=== PATIENT | female | born 1960 | race African-American/Black ===

== ENCOUNTER 2017-10-20 09:51 | Emergency (ER) | payer BC | END 2017-10-20 11:38 | disposition home or self-care (01) | LOC: ER 09:51 | DX: S80.01XA Contusion of right knee, initial encounter (principal); Z88.0 Allergy status to penicillin; W22.8XXA Striking against or struck by other objects, initial encounter; Y93.89 Activity, other specified; Y92.89 Other specified places as the place of occurrence of the external cause; Y99.8 Other external cause status | CPT/HCPCS: 73564; 99284 ==

== ENCOUNTER 2018-09-22 13:20 | Emergency (ER) | payer SELFPAY ==
[~2018-09-22] VITALS: Ht 160 cm; Wt 98.0 kg
[~2018-09-22 13:20] MED LIST: DICL50TA4 PO; MECL25TA3 PO; METH4TAB2 PO; ONDA4TAB7 PO
--- NOTE | 2018-09-22 13:57 | PHYS DOC ---
Past Medical History Past Medical History: No Pertinent History Past Surgical History: Tubal ligation, Other Additional Past Surgical Histo: laparoscopy Additional Information: Denies smoking Alcohol Use: Rarely Drug Use: None Adult General Chief Complaint Chief Complaint: ABDOMINAL PAIN HPI HPI Patient is a 58 year old female who presents with complaining of abdominal pain. Patient complaining of upper abdominal pain for the last 5 days as a constant burning pain with episodes of sharp pain with radiation to bilateral lower abdomen and rated her pain 7/10. Patient states she usually has 3 small bowel movement every day and for the last few days had only 2 bowel movements per day and took laxative without change of her pain. Patient also took Advil and Pepto-Bismol without improvement of her pain. Patient denies nausea, vomiting, fever and chills, diarrhea, urinary symptom, history of the same pain. Patient has history of tubal ligation and denies any other medical problem. Review of Systems Review of Systems Constitutional: Denies fever or chills [] Eyes: Denies change in visual acuity, redness, or eye pain [] HENT: Denies nasal congestion or sore throat [] Respiratory: Denies cough or shortness of breath [] Cardiovascular: No additional information not addressed in HPI [] GI: Reports abdominal pain, constipation, denies nausea, vomiting, bloody stools or diarrhea [] : Denies dysuria or hematuria [] Musculoskeletal: Denies back pain or joint pain [] Integument: Denies rash or skin lesions [] Neurologic: Denies headache, focal weakness or sensory changes [] Endocrine: Denies polyuria or polydipsia [] All other systems were reviewed and found to be within normal limits, except as documented in this note. Current Medications Current Medications Current Medications Medications (Trade) Dose Ordered Sig/Aidee Start Time Stop Time Status Last Admin Dose Admin Info (CONTRAST GIVEN -- Rx MONITORING) 1 each PRN DAILY PRN 09/22/18 14:30 09/24/18 14:29 Iohexol (Omnipaque 240 Mg/ml) 30 ml 1X ONCE 09/22/18 14:15 09/22/18 14:17 DC 09/22/18 14:15 30 ML Iohexol (Omnipaque 300 Mg/ml) 75 ml 1X ONCE 09/22/18 14:15 09/22/18 14:17 DC 09/22/18 15:00 75 ML Ketorolac Tromethamine (Toradol 30mg Vial) 30 mg 1X ONCE 09/22/18 14:00 09/22/18 14:01 DC 09/22/18 14:31 30 MG Allergies Allergies Allergies Coded Allergies Type Severity Reaction Last Updated Verified Penicillins Allergy Intermediate 08/25/16 Yes Physical Exam Physical Exam Constitutional: Well developed, well nourished, no acute distress, non-toxic appearance. [] HENT: Normocephalic, atraumatic, oropharynx moist, no oral exudates, nose normal. [] Eyes: PERRLA, EOMI, conjunctiva normal, no discharge. [] Neck: Normal range of motion, no tenderness, supple, no stridor. [] Cardiovascular:Heart rate regular rhythm, no murmur [] Lungs & Thorax: Bilateral breath sounds clear to auscultation [] Abdomen: Bowel sounds normal, soft, guarding in epigastric area and right lower quadrant, no tenderness, no masses, no pulsatile masses. [] Skin: Warm, dry, no erythema, no rash. [] Back: No tenderness, no CVA tenderness. [] Extremities: No tenderness, no cyanosis, no clubbing, ROM intact, no edema. [] Neurologic: Alert and oriented X 3, normal motor function, normal sensory function, no focal deficits noted. [] Psychologic: Affect normal, judgement normal, mood normal. [] Current Patient Data Vital Signs Vital Signs Date Time Temp Pulse Resp B/P (MAP) Pulse Ox O2 Delivery O2 Flow Rate FiO2 09/22/18 15:00 59 20 146/70 (95) 100 Room Air 09/22/18 13:25 97.7 97.7 Lab Values Laboratory Tests Test 09/22/18 13:57 09/22/18 14:10 White Blood Count 7.1 x10^3/uL (4.0-11.0) Red Blood Count 4.81 x10^6/uL (3.50-5.40) Hemoglobin 13.4 g/dL (12.0-15.5) Hematocrit 40.3 % (36.0-47.0) Mean Corpuscular Volume 84 fL (79-100) Mean Corpuscular Hemoglobin 28 pg (25-35) Mean Corpuscular Hemoglobin Concent 33 g/dL (31-37) Red Cell Distribution Width 14.1 % (11.5-14.5) Platelet Count 215 x10^3/uL (140-400) Neutrophils (%) (Auto) 49 % (31-73) Lymphocytes (%) (Auto) 42 % (24-48) Monocytes (%) (Auto) 6 % (0-9) Eosinophils (%) (Auto) 1 % (0-3) Basophils (%) (Auto) 1 % (0-3) Neutrophils # (Auto) 3.5 x10^3uL (1.8-7.7) Lymphocytes # (Auto) 3.0 x10^3/uL (1.0-4.8) Monocytes # (Auto) 0.4 x10^3/uL (0.0-1.1) Eosinophils # (Auto) 0.1 x10^3/uL (0.0-0.7) Basophils # (Auto) 0.1 x10^3/uL (0.0-0.2) Sodium Level 141 mmol/L (136-145) Potassium Level 3.9 mmol/L (3.5-5.1) Chloride Level 104 mmol/L (98-107) Carbon Dioxide Level 29 mmol/L (21-32) Anion Gap 8 (6-14) Blood Urea Nitrogen 14 mg/dL (7-20) Creatinine 0.7 mg/dL (0.6-1.0) Estimated GFR (Cockcroft-Gault) 104.4 BUN/Creatinine Ratio 20 (6-20) Glucose Level 92 mg/dL (70-99) Calcium Level 9.4 mg/dL (8.5-10.1) Total Bilirubin 0.2 mg/dL (0.2-1.0) Aspartate Amino Transferase (AST) 21 U/L (15-37) Alanine Aminotransferase (ALT) 20 U/L (14-59) Alkaline Phosphatase 80 U/L (46-116) Total Protein 7.2 g/dL (6.4-8.2) Albumin 3.5 g/dL (3.4-5.0) Albumin/Globulin Ratio 0.9 (1.0-1.7) L Lipase 173 U/L (73-393) Urine Collection Type Unknown Urine Color Colorless Urine Clarity Cloudy Urine pH 7.0 Urine Specific [place] 1.010 Urine Protein Negative mg/dL (NEG-TRACE) Urine Glucose (UA) Negative mg/dL (NEG) Urine Ketones (Stick) Negative mg/dL (NEG) Urine Blood Negative (NEG) Urine Nitrite Negative (NEG) Urine Bilirubin Negative (NEG) Urine Urobilinogen Dipstick 0.2 mg/dL (0.2 mg/dL) Urine Leukocyte Esterase Negative (NEG) Urine RBC Rare /HPF (0-2) Urine WBC Occ /HPF (0-4) Urine Squamous Epithelial Cells Few /LPF Urine Bacteria Few /HPF (0-FEW) Laboratory Tests 09/22/18 13:57 Laboratory Tests 09/22/18 13:57 EKG EKG [] Radiology/Procedures Radiology/Procedures IMAGING REPORT Signed PATIENT: CRISTIANA SOSA ACCOUNT: [id number] : 1960 LOCATION: ER AGE: 58 SEX: F EXAM STATUS: REG ER ORD. PHYSICIAN: ROSA MCNULTY MD REASON: periumbilical and upper abdominal pain PROCEDURE: CT ABD PELV W/ORAL&IV CONTRAST PQRS Compliance Statement: One or more of the following individualized dose reduction techniques were utilized for this examination: 1. Automated exposure control 2. Adjustment of the mA and/or kV according to patient size 3. Use of iterative reconstruction technique CT abdomen/pelvis with contrast 09/22/2018 2:55 PM INDICATION: Periumbilical abdominal pain and upper abdominal pain. COMPARISON: None available TECHNIQUE: Multiple axial CT images of the abdomen and pelvis were obtained after the intravenous administration of 75 mL Omnipaque 300. Coronal and sagittal reformats are provided. FINDINGS: There is subsegmental atelectasis at the right lung base. Heart size is within normal limits. The liver, spleen, bilateral adrenal glands, pancreas and gallbladder are normal in appearance. The abdominal aorta is normal in course and caliber. Few scattered mesenteric lymph nodes are identified measuring up to 15 x 9 mm (series 2, image 33). Additional mesenteric lymph node measures 12 x 9 mm (series 2, image 35). No mesenteric inflammatory changes are identified. There is mild diverticulosis. No adjacent inflammatory changes are identified. Small and large bowel are normal in caliber. Oral contrast was administered. Opacified bowel loops since her normal mucosal fold pattern. There is eccentric wall thickening involving the cecum. Normal appendix is visualized. There is no abdominal free fluid. There is no free intraperitoneal air. The kidneys enhance symmetrically. There is no suspicious renal mass. There is no hydronephrosis. There are no suspected calculi within the kidneys, ureters or urinary bladder. Urinary bladder is within normal limits given degree of distention. Uterus is anteverted with endometrial thickening measuring up to 13 mm. Correlation with ultrasound pelvis may be of benefit as findings appear thickened for a postmenopausal female. No suspicious pelvic mass is identified. No suspicious osseous amount is identified. IMPRESSION: 1. No evidence for bowel obstruction or inflammation. Appendix is normal in appearance. Next line 2. There is eccentric wall thickening involving the cecum. Correlation with endoscopic evaluation is recommended to assess for malignant etiology. 3. Borderline mesenteric lymph nodes are identified, nonspecific. Findings may be reactive. However, a 3 month follow-up CT may be of benefit. 4. Endometrial thickening measuring up to 13 mm. Findings would be abnormal in a postmenopausal female. If there is persistent clinical concern, further evaluation with pelvic ultrasound may be of benefit. Correlate with any exogenous hormone use . Electronically signed by: Ying Turner MD (09/22/2018 3:15 PM) [facility] DICTATED and SIGNED BY: YING TURNER MD DATE: 09/22/18 1510 Course & Med Decision Making Course & Med Decision Making Pertinent Labs and Imaging studies reviewed. (See chart for details) Evaluation of patient in ER showed 58-year-old female patient with complaining of upper abdominal pain for several days with the other symptoms. Patient had unremarkable physical exam and labs. CT showed thickening wall of cecum. Patient never had colonoscopy. Patient instructed to follow up with GI on-call for possible colonoscopy. Patient felt better with treatment in ER and plan to discharge her home with prescription of Ultram. Dragon Disclaimer Dragon Disclaimer This electronic medical record was generated, in whole or in part, using a voice recognition dictation system. Departure Departure Impression: Primary Impression: Abdominal pain Additional Impression: Abnormal computed tomography of cecum and terminal ileum Disposition: HOME, SELF-CARE (@1600 ) Condition: IMPROVED Referrals: MARIA INES MCALLISTER MD (PCP) SHEA CORCORAN MD Patient Instructions: Abdominal Pain Additional Instructions: Drink plenty of liquids Follow-up with your primary care physician in 3-5 days Return to ER if not getting better Follow-up with on-call GI physician regarding abnormal CT Scripts Tramadol Hcl (ULTRAM) 50 Mg Tablet 50 MG PO Q6HRS PRN for PAIN, #14 TAB 0 Refills Prov: ROSA MCNULTY MD 09/22/18 Problem Qualifiers ROSA MCNULTY MD Sep 22, 2018 13:57
[2018-09-22] MEDS ORDERED: KETOROLAC 30 MG/ML VIAL. IV ONE (14:00)
[2018-09-22 14:12] LABS: BASO # 0.1 x10^3/uL (0.0-0.2); BASO % 1 % (0-3); EOS # 0.1 x10^3/uL (0.0-0.7); EOS % 1 % (0-3); HEMATOCRIT 40.3 % (36.0-47.0); HEMOGLOBIN 13.4 g/dL (12.0-15.5); LYMPH % 42 % (24-48); MEAN CORPUSCULAR HEMOGLOBIN 28 pg (25-35); MEAN CORPUSCULAR HGB CONC 33 g/dL (31-37); MEAN CORPUSCULAR VOLUME 84 fL (79-100); MONO # 0.4 x10^3/uL (0.0-1.1); MONO % 6 % (0-9); NEUT # 3.5 x10^3uL (1.8-7.7); NEUT % 49 % (31-73); PLATELET COUNT 215 x10^3/uL (140-400); RED BLOOD COUNT 4.81 x10^6/uL (3.50-5.40); RED CELL DISTRIBUTION WIDTH 14.1 % (11.5-14.5); WHITE BLOOD COUNT 7.1 x10^3/uL (4.0-11.0)
[2018-09-22] MEDS ORDERED: IOHEXOL 240 MG/ML 50ML VIAL. PO ONE (14:15)
[2018-09-22] MEDS ORDERED: IOHEXOL 300 MG/ML 100ML VIAL. IV ONE (14:15)
[2018-09-22 14:18] LABS: BILIRUBIN,URINE NEGATIVE (NEG); CLARITY,URINE CLOUDY; NITRITE,URINE NEGATIVE (NEG); PROTEIN,URINE NEGATIVE (NEG-TRACE); UROBILINOGEN,URINE 0.2 mg/dL (0.2 mg/dL)
[2018-09-22 14:22] LABS: CALCIUM 9.4 mg/dL (8.5-10.1); CREATININE 0.7 mg/dL (0.6-1.0); GFR 104.4; POTASSIUM 3.9 mmol/L (3.5-5.1)
[2018-09-22 14:27] LABS: ALBUMIN 3.5 g/dL (3.4-5.0); ALBUMIN/GLOBULIN RATIO 0.9 (1.0-1.7); TOTAL BILIRUBIN 0.2 mg/dL (0.2-1.0); TOTAL PROTEIN 7.2 g/dL (6.4-8.2)
[2018-09-22] MEDS ORDERED: CONTRAST GIVEN. MC PRN (14:30)
[2018-09-22 14:31] LABS: BACTERIA,URINE FEW /HPF (0-FEW); COLOR,URINE COLORLESS; RBC,URINE RARE /HPF (0-2); SQUAMOUS EPITHELIAL CELL,UR FEW /LPF; WBC,URINE OCC /HPF (0-4)
[2018-09-22 15:00] VITALS: BP 146/70
--- NOTE | 2018-09-22 15:19 | RAD ---
PQRS Compliance Statement: One or more of the following individualized dose reduction techniques were utilized for this examination: 1. Automated exposure control 2. Adjustment of the mA and/or kV according to patient size 3. Use of iterative reconstruction technique CT abdomen/pelvis with contrast 09/22/2018 2:55 PM INDICATION: Periumbilical abdominal pain and upper abdominal pain. COMPARISON: None available TECHNIQUE: Multiple axial CT images of the abdomen and pelvis were obtained after the intravenous administration of 75 mL Omnipaque 300. Coronal and sagittal reformats are provided. FINDINGS: There is subsegmental atelectasis at the right lung base. Heart size is within normal limits. The liver, spleen, bilateral adrenal glands, pancreas and gallbladder are normal in appearance. The abdominal aorta is normal in course and caliber. Few scattered mesenteric lymph nodes are identified measuring up to 15 x 9 mm (series 2, image 33). Additional mesenteric lymph node measures 12 x 9 mm (series 2, image 35). No mesenteric inflammatory changes are identified. There is mild diverticulosis. No adjacent inflammatory changes are identified. Small and large bowel are normal in caliber. Oral contrast was administered. Opacified bowel loops since her normal mucosal fold pattern. There is eccentric wall thickening involving the cecum. Normal appendix is visualized. There is no abdominal free fluid. There is no free intraperitoneal air. The kidneys enhance symmetrically. There is no suspicious renal mass. There is no hydronephrosis. There are no suspected calculi within the kidneys, ureters or urinary bladder. Urinary bladder is within normal limits given degree of distention. Uterus is anteverted with endometrial thickening measuring up to 13 mm. Correlation with ultrasound pelvis may be of benefit as findings appear thickened for a postmenopausal female. No suspicious pelvic mass is identified. No suspicious osseous amount is identified. IMPRESSION: 1. No evidence for bowel obstruction or inflammation. Appendix is normal in appearance. Next line 2. There is eccentric wall thickening involving the cecum. Correlation with endoscopic evaluation is recommended to assess for malignant etiology. 3. Borderline mesenteric lymph nodes are identified, nonspecific. Findings may be reactive. However, a 3 month follow-up CT may be of benefit. 4. Endometrial thickening measuring up to 13 mm. Findings would be abnormal in a postmenopausal female. If there is persistent clinical concern, further evaluation with pelvic ultrasound may be of benefit. Correlate with any exogenous hormone use . Electronically signed by: Terri Eric MD (09/22/2018 3:15 PM) [facility]
[2018-09-22] MEDS ORDERED: TRAM-48 PO (16:02)
== END 2018-09-22 16:25 | disposition home or self-care (01) ==
LOC: ER 13:20
DX: R10.13 Epigastric pain (principal); R10.31 Right lower quadrant pain; R93.3 Abnormal findings on diagnostic imaging of other parts of digestive tract; Z88.0 Allergy status to penicillin
CPT/HCPCS: 36415; 74177; 80053; 81001; 83690; 85025; 96374; 99284; J1885; Q9966; Q9967